=== PATIENT | male | born 1965 | race Caucasian/White ===

== ENCOUNTER 2016-11-24 15:01 | Outpatient (CLI) | payer OTHER | END 2016-11-24 15:02 | disposition home or self-care (01) | LOC: NAVSJIPCSP 15:01 | PROVIDERS: ATTEND Family Medicine | DX: R50.9 Fever, unspecified (principal) ==

== ENCOUNTER 2019-06-22 09:36 | Outpatient (CLI) | payer OTHER ==
--- NOTE | 2019-06-22 14:14 | RAD ---
PA AND LATERAL VIEWS CHEST: HISTORY: New diagnosis of hypertension. FINDINGS: The heart size is normal. The lungs are expanded without focal areas of consolidation, pneumothorace s, or pleural effusions. There are tiny calcified granulomas seen in the left lower lung. There are postop changes of right rotator cuff surgery. IMPRESSION: No radiographic evidence of acute cardiopulmonary process. POS: [facility]
== END 2019-06-22 09:37 | disposition home or self-care (01) ==
LOC: NAV ULT 09:36
PROVIDERS: ATTEND Internal Medicine
DX: R03.0 Elevated blood-pressure reading, without diagnosis of hypertension (principal); I07.1 Rheumatic tricuspid insufficiency; I37.1 Nonrheumatic pulmonary valve insufficiency
CPT/HCPCS: 71046; 93306

== ENCOUNTER 2022-08-14 11:13 | Outpatient (CLI) | payer OTHER | END 2022-08-14 11:14 | disposition home or self-care (01) | LOC: NAV RAD 11:13 | PROVIDERS: ATTEND Nurse Practitioner Family | DX: M79.641 Pain in right hand (principal) ==

== ENCOUNTER 2022-12-28 12:55 | Emergency (ER) | payer OTHER ==
[2022-12-28] MEDS ORDERED: Lidocaine 1% (PF) 30 ML VIAL ONE ×2 (13:10→13:36)
[2022-12-28] MEDS ORDERED: Boostrix 0.5 ML (Tdap) VIAL (>/=7 yrs of age) ONE (13:10)
[2022-12-28] MEDS ORDERED: Bacitracin 1 PK ONE (14:56)
== END 2022-12-28 15:14 | disposition home or self-care (01) ==
LOC: NAV ERS 12:55
DX: S61.011A Laceration without foreign body of right thumb without damage to nail, initial encounter (principal); I10 Essential (primary) hypertension; F17.220 Nicotine dependence, chewing tobacco, uncomplicated; E78.00 Pure hypercholesterolemia, unspecified; W26.8XXA Contact with other sharp object(s), not elsewhere classified, initial encounter; Z23 Encounter for immunization; Z79.899 Other long term (current) drug therapy
CPT/HCPCS: 12002; 90471; 90715; J2001